=== PATIENT | male | born 1950 ===

== ENCOUNTER 2016-10-12 13:00 | Emergency (ER) | payer BC ==
[2016-10-12 13:06] VITALS: BP 125/78
--- NOTE | 2016-10-12 13:18 | UC ---
Skin Complaint HPI - HPI Summary HPI Summary: Rash on left buttock---itchy but painful, for 2-3 days got a shingles vaccine 5 weeks ago - History of Current Complaint Chief Complaint: UCSkin Time Seen by Provider: 10/12/16 13:11 Stated Complaint: SKIN COMPLAINT Hx Obtained From: Patient Onset/Duration: Sudden Onset, Lasting Days, Still Present Timing: Constant Onset Severity: Mild Current Severity: Mild Location: Discrete - left buttock Character: Pain, Redness Aggravating: Nothing Alleviating: Nothing Associated Signs & Symptoms: Positive: Negative - Allergy/Home Medications Allergies/Adverse Reactions: Allergies Allergy/AdvReac Type Severity Reaction Status Date / Time Sulfa Antibiotics Allergy Rash Verified 10/12/16 13:06 Home Medications: Home Medications Ramipril [Altace] 1.25 mg PO 10/12/16 [History] Review of Systems Constitutional: Negative Skin: Negative - Left buttock, Rash Eyes: Negative ENT: Negative Respiratory: Negative Cardiovascular: Negative Gastrointestinal: Negative Genitourinary: Negative Motor: Negative Neurovascular: Negative Musculoskeletal: Negative Neurological: Negative Psychological: Negative All Other Systems Reviewed And Are Negative: Yes PMH/Surg Hx/FS Hx/Imm Hx Previously Healthy: No Cardiovascular History: Hypertension - Surgical History Surgical History: None - Family History Known Family History: Positive: None - Social History Occupation: Employed Full-time Lives: With Family Alcohol Use: Occasionally Substance Use Type: None Smoking Status (MU): Never Smoked Tobacco Physical Exam Triage Information Reviewed: Yes Appearance: Well-Appearing, No Pain Distress, Well-Nourished Vital Signs: Initial Vital Signs Temp 97.4 F 10/12/16 13:02 Pulse 73 10/12/16 13:02 Resp 18 10/12/16 13:02 BP 125/78 10/12/16 13:02 Pulse Ox 98 10/12/16 13:02 Vital Signs Reviewed: Yes Eye Exam: Normal Eyes: Positive: Conjunctiva Clear ENT Exam: Normal ENT: Positive: Normal ENT inspection, Hearing grossly normal. Negative: Nasal congestion, Nasal drainage, Trismus, Muffled/hoarse voice Dental Exam: Normal Neck exam: Normal Neck: Positive: Supple, Nontender Respiratory Exam: Normal Respiratory: Positive: Chest non-tender, No respiratory distress, No accessory muscle use Cardiovascular Exam: Normal Cardiovascular: Positive: RRR, Pulses Normal, Brisk Capillary Refill Musculoskeletal Exam: Normal Musculoskeletal: Positive: Strength Intact, ROM Intact, No Edema Neurological Exam: Normal Neurological: Positive: Alert, Muscle Tone Normal Psychological Exam: Normal Skin Exam: Other Skin: Positive: rashes - red raised no vesicles Course/Dx - Course Course Of Treatment: Acyclovir, ibuprofen tylenol, follow with pcp - Differential Diagnoses - Skin Complaint Differential Diagnoses: Cellulitis, Impetigo, Local Allergic Reaction, Varicella Zoster - Diagnoses Provider Diagnoses: Varicella [place] Discharge - Discharge Plan Condition: Stable Disposition: HOME Prescriptions: Acyclovir* [Zovirax 400 MG TAB*] 800 mg PO 5ID #70 tab Patient Education Materials: Hydrocortisone (On the skin), Shingles (ED) Referrals: Marty Brown MD [Primary Care Provider] - If Needed
== END 2016-10-12 13:36 | disposition home or self-care (01) ==
LOC: UCEAST 13:00
DX: B01.9 Varicella without complication (principal); I10 Essential (primary) hypertension; Z88.2 Allergy status to sulfonamides
CPT/HCPCS: 99212; G0463